=== PATIENT | female | born 1985 | race Caucasian/White ===

== ENCOUNTER 2020-09-14 11:27 | Emergency (ER) | payer OTHER ==
[~2020-09-14 11:27] MED LIST: DELSYM30 MG/5 ML PO; FLONASE 0.05% N16 GM; ZYRTEC10 M3 PO
[2020-09-14] MEDS ORDERED: IBUPROFEN600 MG PO (11:53)
[2020-09-14] MEDS ORDERED: HYDROCODON-ACE1 EAC4 PO (11:53)
== END 2020-09-14 12:52 | disposition home or self-care (01) ==
LOC: ER1 11:27
DX: M25.511 Pain in right shoulder (principal); M54.2 Cervicalgia
CPT/HCPCS: 96372; 99283; J1100; J1885

== ENCOUNTER → 2020-09-21 | Outpatient (CLI) | payer OTHER ==
[~2020-09-21] MED LIST changes: +HYDROCODON-ACE1 EAC4 PO; +IBUPROFEN600 MG PO
== END ==
LOC: KOH-I 14:11
DX: M54.2 Cervicalgia (principal)
CPT/HCPCS: 72040